=== PATIENT | male | born 1965 | race Caucasian/White ===

== ENCOUNTER 2022-08-10 08:15 | Outpatient (RCR) | payer OTHER, SELFPAY | END 2022-09-24 11:08 | disposition home or self-care (01) | PROVIDERS: PCP Family Medicine; Visit Provider Family Medicine | DX: M25.511 Pain in right shoulder (principal); Z51.89 Encounter for other specified aftercare | CPT/HCPCS: 97110; 97140; 97161 ==

== ENCOUNTER 2022-11-03 07:39 | Outpatient (CLI) | payer OTHER, SELFPAY | END 2022-11-03 07:40 | disposition home or self-care (01) | PROVIDERS: PCP Family Medicine; Visit Provider Surgery | DX: Z12.11 Encounter for screening for malignant neoplasm of colon (principal); K63.5 Polyp of colon; K57.30 Diverticulosis of large intestine without perforation or abscess without bleeding; Z86.010 Personal history of colon polyps | CPT/HCPCS: 45385; 88305; 99153; J2250; J3010 ==

== ENCOUNTER 2024-12-20 07:45 | Outpatient (CLI) | payer OTHER, SELFPAY ==
--- NOTE | 2024-12-20 08:00 | CRLHL7_ITS ---
For Patients: As a result of the Century Cures Act, medical imaging exams and procedure reports are released immediately into your electronic medical record. You may view this report before your referring provider. If you have questions, please contact your health care provider. INDICATION: .LLQ/GROIN PAIN. POSSIBLE HERNIA. TECHNIQUE: CT abdomen and pelvis without contrast. COMPARISON: CT 2019. FINDINGS: Lower chest: Dependent subsegmental atelectasis. ABDOMEN: Liver: Normal attenuation. Gallbladder and biliary: Cholecystectomy. Normal caliber bile ducts. Spleen: Normal size and attenuation. Pancreas: The noncontrast pancreas is homogeneous in attenuation without peripancreatic inflammatory changes or ductal dilatation. Adrenal glands: Normal adrenal glands. Kidneys and ureters: Normal attenuation. No radio-opaque calculi. No hydroureteronephrosis. GI tract: The stomach is relatively decompressed. Normal caliber small and large bowel loops. Normal appendix. Colonic diverticulosis without diverticulitis. Vascular structures: Normal caliber aorta with atherosclerotic calcifications. Lymph nodes: No lymphadenopathy in the abdomen or pelvis by size criteria. Peritoneum: No free air, free fluid, or focal drainable fluid collection. PELVIS: Genitourinary system: Urinary bladder is decompressed. Normal-sized prostate. SKELETAL STRUCTURES AND SOFT TISSUES: Changes of prior umbilical hernia repair. No discrete inguinal hernia. Old left transverse process fractures involving the lumbar spine. Ossific fragment in the left hip joint space. Chronic. IMPRESSION: No discrete acute abdominal or pelvic process. No imaging findings to explain the reported clinical symptoms. No definite inguinal hernia on this exam. Please note that all CT scans at this facility use dose modulation, iterative reconstruction, and/or weight-based dosing when appropriate to reduce radiation dose to as low as reasonably achievable. Dictated by Michele Maciel MD @ 12/20/2024 4:27:22 PM (Electronically Signed)
== END 2024-12-20 07:46 | disposition home or self-care (01) ==
LOC: CT 07:46
PROVIDERS: PCP Family Medicine; Visit Provider Family Medicine
DX: R10.32 Left lower quadrant pain (principal)
CPT/HCPCS: 74176

== ENCOUNTER 2025-03-19 09:15 | Outpatient (RCR) | payer BC, SELFPAY ==
--- NOTE | 2025-02-26 15:18 | PT.OPE ---
PT [facility] Outpatient Eval [facility] Outpatient Eval Start: 02/26/25 12:42 Freq: Status: Active Protocol: Document 02/26/25 12:42 (Rec: 02/26/25 15:15 [email or web address]) E-signed By Cleo Whittaker DPT Physical Therapy Outpatient Evaluation Insurance Information Recert Due Date 05/29/25 Insurance Name [facility] Medical Diagnosis R10.32 Left lower quadrant pain Left Groin pain Treating Diagnosis M25.652 Stiffness of Left Hip M25.552 Left Hip Pain Imaging Report CT scan= no acute abdominal or pelvis process Information Referring MD Isaias Goodman MD Subjective Preferred Name Corbin Alaniz is a 59 y/o male who presents with c/o pain in rear butt and in groin. Originally happened possibly after lifting heavy object. Pain has been present for ~ 6 months and feels pain usually after sitting for long periods of time and isolated to the left side. SHERRELL:?possibly lifting heavy object and felt pull on bottom of buttocks. Aggravating factors:?sitting for long periods of time. Alleviating factors:?Tylenol but pain will decrease over time and when he isn't sitting for long times while working. PMH:?low back problems, OA in hips, possibly prostate concerns with family history of prostate cancer. 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 -Knee Flex: R: 5/5, L: 5/5? -Hip Abd: R: 5/5, L: 4/5? -Hip Add: R: 5/5, L: 5/5? -Hip Ext: R: 4+/5, L: 4-/5? -Hip Flx: R: 5/5, L: 4/5? Palpation Soreness with palpation in left ITB and slight soreness in left piriformis. Pain relief provided with open pack long axis distraction Posture Noted left pelvic ASIS upslip compared to left after muscle length testing. Correct with long axis mobilization. Sensation/Reflexes normal Other/Pertinent Hip Labral:? Objective -RHONDA: positive on Left for tightness and pain; tight on right but > left -FADIR:?positive for tightness - Sandie's: positive - Hamstrin degrees L/ 55 degrees -Hip Abd: R: 5/5, L: 4/5? -Hip Ext: R: 4+/5, L: 4-/5? -Hip Flx: R: 5/5, L: 4/5? Functional Test LEFS= 51/80 Performed & Score Assessment Assessment/ Corbni is a 59 year old male presenting to physical Impression therapy for evaluation and treatment of left lower quadrant pain and left groin pain. Patient presents with impaired left hip range of motion, impaired strength, and impaired pelvic postural alignment as well as pain. These impairments are limiting the patients ability to sit for extended periods of time and complete certain lower extremity motions for functional mobility. Patient appears motivated to participate in PT and presents with good prognosis to improve mobility, strength, proprioception and return to functional activities with skilled physical therapy intervention.? Primary Functional flexibility, pain with sitting and mobility, weakness Limitations Plan of Care Rehabilitation Good Potential Physical Therapy STG's to be met in 2-4 weeks: Goals 1.) Pt will report pain at 6/10 or less at worst 2.) Pt will be independent and compliant with HEP to further facilitate healing. LTG's to be met in 6-8 weeks: 1.) Pt will report pain at 4/10 or less at worst. 2.) Pt will demonstrate 5/5 strength MMT in glut max & glut med to improve dynamic control with SLS activities and gait.? 3.) Pt will demonstrate increased left hamstring ROM to 50 degrees or greater and pain free. 4.) Pt will be able to sit during work without pain. Coordination/ Referral Source Communication With Treatment Plan/ Joint Mobilization,Manual Therapy,Neuromuscular Re-ed, Direct Interventions Therapeutic Activities,Therapeutic Exercises Frequency/Duration 1-2x/week for 6-8 weeks Patient Will Be Completion of LTG(s) Discharged From Therapy Evaluation Billing Untimed Code 30 Treatment Minutes PT Eval No Charge No Complexity Low Certification Information Initial 02/26/25 Certification Date Ending Certification 05/29/25 Date Provider Signature Communication Only-No Signature Required Required
== END 2025-07-17 23:59 | disposition home or self-care (01) ==
PROVIDERS: PCP Family Medicine; Visit Provider Family Medicine
DX: R10.32 Left lower quadrant pain (principal); M25.552 Pain in left hip; Z51.89 Encounter for other specified aftercare
CPT/HCPCS: 97110; 97140; 97161

== ENCOUNTER 2025-03-27 07:56 | Outpatient (CLI) | payer BC, SELFPAY ==
--- NOTE | 2025-03-27 08:15 | CRLHL7_ITS ---
For Patients: As a result of the Century Cures Act, medical imaging exams and procedure reports are released immediately into your electronic medical record. You may view this report before your referring provider. If you have questions, please contact your health care provider. INDICATION: Low back pain. TECHNIQUE: Noncontrast sagittal and axial T1, T2, and sagittal STIR sequences are provided. No comparisons. FINDINGS: The overall stature, alignment and intrinsic marrow signal of the lumbar spine is within normal limits. Conus is normal. L4-5: Mild left intra foraminal/lateral disc bulge results in mild left foraminal narrowing with no central canal or right foraminal narrowing. L5-S1: Minor posterior disc bulge with endplate osteophyte and facet arthropathy results in minimal bilateral foraminal narrowing with no central canal narrowing. Remainder of the lumbar spine is unremarkable, specifically no evidence of suspicious central canal or foraminal narrowing. IMPRESSION: 1. Mild left foraminal narrowing at L4-5. 2. Minimal bilateral L5-S1 foraminal narrowing. Dictated by Jese Stafford MD @ 03/28/2025 8:26:06 AM (Electronically Signed)
--- OUTSIDE RECORDS SUMMARY | 2025-03-27 08:27 | XMS_ITS | Encounter Summary ---
Author Organization [place] Address [address] [facility] [place] [address] Care Team Providers Care Harness Rigger Name Role Phone Saige De La Cruz MD Primary Care Provider [phone] Ramsey Romero MD Primary Care Provider Unavailable Arthur Perez MD Primary Care Provider Isaias Goodman MD Primary Care Provider [phone] Nydia Strauss MD Unavailable [phone] Arthur Perez MD Unavailable [phone] Arthur Perez MD Unavailable [phone] Encounter Details Date Type Department Care Team (Late st Contact Info) Description 10/14/2011 MyC Medical Advice [facility] [id number] [place] [id number] Saige De La Cruz MD [address] [place] [address] Social History Tobacco Use Types Packs/Day Years Used Date Smoking Tobacco: Never Smokeless Tobacco: Never Alcohol Use Standard Drinks/Week Comments Yes 0 (1 standard drink = 0.6 oz pur e alcohol) upto 4 drinks per week Sex and Gender Information Value Date Recorded Sex Assigned at Male 05/30/2024 11:48 AM CDT 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 Gender Identity Male 05/30/2024 11:48 AM CDT Sexual Orientation Not on file documented as of this encounter Plan of Treatment Not on file documented as of this encounter Visit Diagnoses Not on filedocumented in this encounter Additional Health Concerns Infection Onset Date Last Indicated Resolved Time Rule Out COVID-19 05/29/2024 05/29/2024 05/30/2024 5:46 PM CDT documented as of this encounter Care Teams Harness Rigger Relationship Specialty Start Date End Date Saige De La Cruz MD PCP - General 07/15/07 06/10/14 Ramsey Romero MD PCP - General Family Practice 06/11/14 08/31/16 Arthur Perez MD [address] [place] [address] PCP - General Internal Medicine 09/01/16 09/08/17 Isaias Goodman MD [facility] [address], [place] [address] PCP - General Family Practice 09/09/17 [place] [address] [place] [address] PCP - Assigned PCP 09/05/17 10/15/18 Arthur Perez MD [address] [place] [address] PCP - Assigned PCP 10/16/18 11/29/18 Arthur Perez MD [address] [place] [address] Assigned PCP 10/16/18 09/02/19 documented as of this encounter
--- OUTSIDE RECORDS SUMMARY | 2025-03-27 08:27 | XMS_ITS | Encounter Summary ---
Author Organization [place] Address [address] [facility] [place] [address] Care Team Providers Care Base Loader Name Role Phone Ramsey Romero MD Primary Care Provider Unavailable Arthur Perez MD Primary Care Provider Isaias Goodman MD Primary Care Provider [phone] Nydia Strauss MD Unavailable [phone] Arthur Perez MD Unavailable [phone] Arthur Perez MD Unavailable [phone] Encounter Details Date Type Department Care Team (Late st Contact Info) Description 07/03/2015 [facility] [place] [address] [place] [address] [address] [place] [address] Billy Jorge MD [facility] [place] [address] [place] [address] [address] [place] [address] [facility]/ Op Report/ 07/03/15 Social History Tobacco Use Types Packs/Day Years Used Date Smoking Tobacco: Never Smokeless Tobacco: Never Alcohol Use Standard Drinks/Week Comments Yes 0 (1 standard drink = 0.6 oz pur e alcohol) upto 4 drinks per week Sex and Gender Information Value Date Recorded Sex Assigned at Male 05/30/2024 11:48 AM CDT 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 Gender Identity Male 05/30/2024 11:48 AM CDT Sexual Orientation Not on file documented as of this encounter Plan of Treatment Not on file documented as of this encounter Visit Diagnoses Not on filedocumented in this encounter Additional Health Concerns Infection Onset Date Last Indicated Resolved Time Rule Out COVID-19 05/29/2024 05/29/2024 05/30/2024 5:46 PM CDT documented as of this encounter Care Teams Base Loader Relationship Specialty Start Date End Date Ramsey Romero MD PCP - General Family Practice 06/11/14 08/31/16 Arthur Perez MD [address] [place] [address] PCP - General Internal Medicine 09/01/16 09/08/[address] [facility] [address], [place] [address] PCP - General Family Practice 09/09/17 [place] [address] [place] [address] PCP - Assigned PCP 09/05/17 10/15/18 Arthur Perez MD [address] [place] [address] PCP - Assigned PCP 10/16/18 11/29/18 Arthur Perez MD [address] [place] [address] Assigned PCP 10/16/18 09/02/19 documented as of this encounter
--- OUTSIDE RECORDS SUMMARY | 2025-03-27 08:27 | XMS_ITS | Encounter Summary ---
Author Organization [place] Address [address] [facility] [place] [address] Care Team Providers Care Physician Internist Name Role Phone Saige De La Cruz MD Primary Care Provider [phone] Ramsey Romero MD Primary Care Provider Unavailable Arthur Perez MD Primary Care Provider [phone] Isaias Goodman MD Primary Care Provider [phone] Nydia Strauss MD Unavailable [phone] Arthur Perez MD Unavailable [phone] Arthur Perez MD Unavailable [phone] Encounter Details Date Type Department Care Team (Late st Contact Info) Description 08/04/2010 MyC Medical Advice [facility] [id number] [place] [id number] Saige De La Cruz MD [address] [place] [address] Social History Tobacco Use Types Packs/Day Years Used Date Smoking Tobacco: Never Alcohol Use Standard Drinks/Week Comments Yes 0 (1 standard drink = 0.6 oz pur e alcohol) 3 drinks per wk Sex and Gender Information Value Date Recorded Sex Assigned at Male 05/30/2024 11:48 AM CDT 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 Gender Identity Male 05/30/2024 11:48 AM CDT Sexual Orientation Not on file documented as of this encounter Plan of Treatment Not on file documented as of this encounter Visit Diagnoses Not on filedocumented in this encounter Additional Health Concerns Infection Onset Date Last Indicated Resolved Time Rule Out COVID-19 05/29/2024 05/29/2024 05/30/2024 5:46 PM CDT documented as of this encounter Care Teams Physician Internist Relationship Specialty Start Date End Date Saige De La Cruz MD PCP - General 07/15/07 06/10/14 Ramsey Romero MD PCP - General Family Practice 06/11/14 08/31/16 Arthur Perez MD [address] [place] [address] PCP - General Internal Medicine 09/01/16 09/08/17 Isaias Goodman MD [facility] [address], [place] [address] PCP - General Family Practice 09/09/17 [place] [address] [place] [address] PCP - Assigned PCP 09/05/17 10/15/18 Arthur Perez MD [address] [place] [address] PCP - Assigned PCP 10/16/18 11/29/18 Arthur Perez MD [address] [place] [address] Assigned PCP 10/16/18 09/02/19 documented as of this encounter
--- OUTSIDE RECORDS SUMMARY | 2025-03-27 08:27 | XMS_ITS | Encounter Summary ---
Author Organization [place] Address [address] [place] [address] Care Team Providers Care Director Of Clinical Education Name Role Phone Saige De La Cruz MD Primary Care Provider [phone] Ramsey Romero MD Primary Care Provider Unavailable Arthur Perez MD Primary Care Provider [phone] Isaias Goodman MD Primary Care Provider [phone] Nydia Strauss MD Unavailable [phone] Arthur Perez MD Unavailable [phone] Arthur Perez MD Unavailable [phone] Encounter Details Date Type Department Care Team (Late st Contact Info) Description 08/05/2011 MyC Medical Advice [facility] [id number] [place] [phone] Saige De La Cruz MD [address] [place] [address] Social History Tobacco Use Types Packs/Day Years Used Date Smoking Tobacco: Never Smokeless Tobacco: Never Alcohol Use Standard Drinks/Week Comments Yes 0 (1 standard drink = 0.6 oz pur e alcohol) upto 4 drinks per week Sex and Gender Information Value Date Recorded Sex Assigned at Male 05/30/2024 11:48 AM CDT 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 Gender Identity Male 05/30/2024 11:48 AM CDT Sexual Orientation Not on file documented as of this encounter Plan of Treatment Not on file documented as of this encounter Visit Diagnoses Not on filedocumented in this encounter Additional Health Concerns Infection Onset Date Last Indicated Resolved Time Rule Out COVID-19 05/29/2024 05/29/2024 05/30/2024 5:46 PM CDT documented as of this encounter Care Teams Director Of Clinical Education Relationship Specialty Start Date End Date Saige De La Cruz MD PCP - General 07/15/07 06/10/14 Ramsey Romero MD PCP - General Family Practice 06/11/14 08/31/16 Arthur Perez MD [address] [place] [address] PCP - General Internal Medicine 09/01/16 09/08/17 sIaias Goodman MD [facility] [address], [place] [address] PCP - General Family Practice 09/09/17 [place] [address] [place] [address] PCP - Assigned PCP 09/05/17 10/15/18 Arthur Perez MD [address] [place] [address] PCP - Assigned PCP 10/16/18 11/29/18 Arthur Perez MD [address] [place] [address] Assigned PCP 10/16/18 09/02/19 documented as of this encounter
--- OUTSIDE RECORDS SUMMARY | 2025-03-27 08:27 | XMS_ITS | Encounter Summary ---
Author Organization [place] Address [address] [facility] [place] [address] Care Team Providers Care Labeling Strategist Name Role Phone Saige De La Cruz MD Primary Care Provider [phone] Ramsey Romero MD Primary Care Provider Unavailable Arthur Perez MD Primary Care Provider Isaias Goodman MD Primary Care Provider [phone] Nydia Strauss MD Unavailable [phone] Arthur Perez MD Unavailable [phone] Arthur Perez MD Unavailable [phone] Encounter Details Date Type Department Care Team (Late st Contact Info) Description 10/16/2011 MyC Medical Advice [facility] [id number] [place] [phone] Saige De La Cruz MD [address] [place] [address] Social History Tobacco Use Types Packs/Day Years Used Date Smoking Tobacco: Never Smokeless Tobacco: Never Alcohol Use Standard Drinks/Week Comments Yes 0 (1 standard drink = 0.6 oz pur e alcohol) upto 4 drinks per week Sex and Gender Information Value Date Recorded Sex Assigned at Male 05/30/2024 11:48 AM CDT 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 Gender Identity Male 05/30/2024 11:48 AM CDT Sexual Orientation Not on file documented as of this encounter Plan of Treatment Not on file documented as of this encounter Visit Diagnoses Not on filedocumented in this encounter Additional Health Concerns Infection Onset Date Last Indicated Resolved Time Rule Out COVID-19 05/29/2024 05/29/2024 05/30/2024 5:46 PM CDT documented as of this encounter Care Teams Labeling Strategist Relationship Specialty Start Date End Date Saige De La Cruz MD PCP - General 07/15/07 06/10/14 Ramsey Romero MD PCP - General Family Practice 06/11/14 08/31/16 Arthur Perez MD [address] [place] [address] PCP - General Internal Medicine 09/01/16 09/08/17 Isaias Goodman MD [facility] [address], [place] [address] PCP - General Family Practice 09/09/17 [place] [address] [place] [address] PCP - Assigned PCP 09/05/17 10/15/18 Arthur Perez MD [address] [place] [address] PCP - Assigned PCP 10/16/18 11/29/18 Arthur Perez MD [address] [place] [address] Assigned PCP 10/16/18 09/02/19 documented as of this encounter
--- OUTSIDE RECORDS SUMMARY | 2025-03-27 08:27 | XMS_ITS | Encounter Summary ---
Author Organization [place] Address [address] [facility] [place] [address] Care Team Providers Care Cracker Dough Mixer Name Role Phone Ramsey Romero MD Primary Care Provider Unavailable Arthur Perez MD Primary Care Provider [phone] Isaias Goodman MD Primary Care Provider [phone] Nydia Strauss MD Unavailable [phone] Arthur Perez MD Unavailable [phone] Arthur Perez MD Unavailable [phone] Encounter Details Date Type Department Care Team (Late st Contact Info) Description 12/21/2014 [facility] [address] [address] Keturah Potrillo RN Social History Tobacco Use Types Packs/Day Years Used Date Smoking Tobacco: Never Smokeless Tobacco: Never Alcohol Use Standard Drinks/Week Comments Yes 0 (1 standard drink = 0.6 oz pur e alcohol) upto 4 drinks per week Sex and Gender Information Value Date Recorded Sex Assigned at Male 05/30/2024 11:48 AM CDT 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 Gender Identity Male 05/30/2024 11:48 AM CDT Sexual Orientation Not on file documented as of this encounter Plan of Treatment Not on file documented as of this encounter Visit Diagnoses Not on filedocumented in this encounter Additional Health Concerns Infection Onset Date Last Indicated Resolved Time Rule Out COVID-19 05/29/2024 05/29/2024 05/30/2024 5:46 PM CDT documented as of this encounter Care Teams Cracker Dough Mixer Relationship Specialty Start Date End Date Ramsey Romero MD PCP - General Family Practice 06/11/14 08/31/16 Arthur Perez MD [address] [place] [address] PCP - General Internal Medicine 09/01/16 09/08/17 Isaias Goodman MD [facility] [address] [place] [address] PCP - General Family Practice 09/09/17 [place] [address] [place] [address] PCP - Assigned PCP 09/05/17 10/15/18 Arthur Perez MD [address] [place] [address] PCP - Assigned PCP 10/16/18 11/29/18 Arthur Perez MD [address] [place] [address] Assigned PCP 10/16/18 09/02/19 documented as of this encounter
--- OUTSIDE RECORDS SUMMARY | 2025-03-27 08:27 | XMS_ITS | Clinical Summary ---
Author Organization [place] Address [address] [facility] [place] [address] Care Team Providers Care Analysis Lead Name Role Phone Isaias Goodman MD Primary Care Provider [phone] Allergies Active Allergy Reactions Criticality Noted Date Comments No Known Drug Allergy 03/24/2007 Medications IBUPROFEN PO Active albuterol (PROAIR HFA/PROVENTIL HFA/VENTOLIN HFA) 108 (90 BASE) MCG/ACT InhalerIndications :Bronchitis Inhale 2 puffs into the lungs every 6 hours as needed for shortness of breath / dyspnea or wheezing 1 Inhaler 3 09/01/20 16 Active atorvastatin (LIPITOR) 10 MG tabletIndications: Hyperlipidemia LDL goal <160 Take 1 tablet (10 mg) by mouth daily 90 tablet 3 09/01/20 16 Active Additional Information Patient not taking.Reported on 11/11/2019 cetirizine (ZYRTEC) 10 MG tabletIndications: Allergic rhinitis due to animal hair and dander, unspecified rhinitis seasonality Take 1 tablet (10 mg) by mouth every evening 90 tablet 3 09/01/20 16 Active levothyroxine (SYNTHROID/LEVOTHR OID) 75 MCG tabletIndications: Acquired hypothyroidism TAKE 1 TABLET BY MOUTH DAILY 90 tablet 09/06/20 17 Active fluticasone (FLONASE) 50 MCG/ACT sprayIndications:C ough [place] 2 sprays into both nostrils daily 3 Bottle 09/07/20 17 Active atorvastatin (LIPITOR) 20 MG tablet Take 20 mg by mouth daily Active meclizine (ANTIVERT) 25 MG tabletIndications: Benign paroxysmal positional vertigo, unspecified laterality Take 1 tablet (25 mg) by mouth 3 times daily as needed for dizziness or nausea. 30 tablet 05/29/20 24 Active Active Problems Patient Care Coordination No te Formatting of this note migh t be different from the original. [email or web address] Problem Noted Date Diagnosed Date Acquired hypothyroidism 12/11/2015 Gastroesophageal reflux disease without esophagi tis 06/28/2015 VICTORIA (obstructive sleep apnea) 08/24/2012 Family history of coronary artery disease 2010 Hyperlipidemia LDL goal <160 08/18/2010 Hyperlipidemia Overview (06/27/2015): Problem list name updated by automated process. Provider to review Resolved Problems Problem Noted Date Diagnosed Date Resolved Date Bilateral low back pain with right-sided sciatica 12/18/2015 03/02/2016 Pain in joint, shoulder region 08/29/2014 12/31/2014 Other postprocedural status(V45.89) 08/29/2014 12/31/2014 Pain in joint, shoulder region 12/26/2013 01/30/2014 Other postprocedural status(V45.89) 12/26/2013 01/30/2014 Umbilical hernia 08/24/2012 06/28/2015 Hypothyroidism 08/12/2011 12/11/2015 Overview (06/28/2015): Problem list name updated by automated process. Provider to review Impaired fasting blood sugar 07/30/2011 06/28/2015 Subclinical hypothyroidism 07/30/2011 1 Snoring 07/30/2011 06/28/2015 Chest pain 06/28/2015 Immunizations Immunization Administration Dates Next Due COVID-19 MONOVALENT 12+ (Pfizer) 01/07/2021,11/26 Influenza (IIV3) PF 09/01/2016, 2,07/30/2011,2009,07/15/2007 Influenza Vaccine >6 months,quad, PF 06/25/2015 Influenza Vaccine, 6+MO IM (QUADRIVALENT W/PRESERVATIVES) 08/30/2014 TD,PF 7+ (Tenivac) 09/27/1999 TDAP Vaccine (Adacel) 05/05/2007 Family History Medical History Relation Comments Hyperlipidemia Brother 2 Lipids Brother 2 doing well with diet and exercise Coronary Artery Disease Father Heart Disease Father mid to upper 50' s-smoker , s/p stenting at that age Hyperlipidemia Father Hypertension Father alive 72 Lipids Father Family History Negative Maternal Grandfather Family History Negative Maternal Grandmother Family History Negative Mother alive 71 Diabetes Paternal Grandfather Obesity Paternal Grandfather Alzheimer Disease Paternal Grandmother Family History Negative Sister 4 Gastrointestinal Disease Sister 5 chron's dis Family History Negative Sister 6 Cancer - colorectal No family hx of Prostate Cancer No family hx of Relation Status Comments Brother 1 Alive Brother 2 Daughter Alive Father Alive Maternal Grandfather Maternal Grandmother Mother Alive Paternal Grandfather Paternal Grandmother Sister 1 Alive Sister 2 Alive Sister 3 Alive Sister 4 Sister 5 Sister 6 Son Alive Social History Tobacco Use Types Packs/Day Years Used Date Smoking Tobacco: Never Smokeless Tobacco: Never Tobacco Cessation:Counseling Given: Yes Alcohol Use Standard Drinks/Week Comments Yes 0 (1 standard drink = 0.6 oz pur e alcohol) upto 4 drinks per week PHQ-2 Answer Date Recorded PHQ-2 Score 0 10/04/2018 Adolescent Education Answer Date Record ed Getting School Help Needed Not on file 07/04 Interpersonal Safety Answer Date Record ed Do you feel physically and e motionally safe where you currently live? Yes 05/31/2024 Within the past 12 months, h ave you been hit, slapped, kicked or otherwise physically hurt by someone? No 05/31/2024 Within the past 12 months, h ave you been humiliated or emotionally abused in other ways by your partner or ex-partner? 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 RN INTERN Gender Identity Male 05/30/2024 11:48 AM CDT Sexual Orientation Not on file Last Filed Vital Signs Vital Sign Reading Time Taken Comments Blood Pressure 139/85 05/29/2024 3:58 PM CDT Pulse 75 05/29/2024 3:58 PM CDT Temperature 36.6 C (97.8 F) 05/29/2024 3:58 PM CDT Respiratory Rate 16 05/29/2024 3:58 PM CDT Oxygen Saturation 95% 05/29/2024 3:58 PM CDT Inhaled Oxygen Concentration - - Weight 116.4 kg (256 lb 9.6 oz) 05/29/2024 3:58 PM CDT Height 185.4 cm (6' 1) 02/23/2020 3:25 PM CDT Body Mass Index 33.85 02/23/2020 3:25 PM CDT Plan of Treatment Health Maintenance Due Date Last Done Comments ADVANCE CARE PLANNING 1967 ANNUAL REVIEW OF HM ORDERS 1967 CT COLONOGRAPHY 1967 FIT 1967 FLEX SIG 1967 sDNA (Cologuard) 1967 COLONOSCOPY 1977 COLORECTAL CANCER SCREENING 1977 HEPATITIS B VACCINE (1 of 3 - 19+ 3-dose series) 1986 YEARLY PREVENTIVE VISIT 09/01/2017 09/01/20 16, 06/07/2014, 08/24/2012, Additional history exists PNEUMOCOCCAL VACCINE 50+ YEARS (1 of 1 - PCV) 2017 TSH W/FREE T4 REFLEX 01/20/2018 01/20/2017, 09/01/2016, 09/01/2016, Additional history exists LIPID 01/20/2022 01/20/2017, 1202/2016, 12/11/2015, Additional history exists COVID-19 VACCINE ( season) 2024 07/29/2022, 09/17/2021, 01/07/2021, Additional history exists PHQ-2 (once per calendar year) 2024 09/01/2016 INFLUENZA VACCINE (Season Ended) 2025 07/29/2022, 11/15/2020, 09/06/2017, Additional history exists DIABETES SCREENING 05/29/2027 05/29/2024, 0 02/23/2020, 09/01/2016, Additional history exists DTAP/TDAP/TD VACCINE (3 - Td or Tdap) 09/06/2027 09/06/2017, 05/05/2007, 09/27/1999 HEPATITIS C SCREENING Completed 11/13/2020 ZOSTER VACCINE Completed 11/15/2020, 04/11/2020 HIV SCREENING Completed 12/03/2021 HPV VACCINE Aged Out No longer eligi ble based on patient's age to complete this topic MENINGITIS VACCINE Aged Out No longer eligible based on patient's age to complete this topic Medical Devices Implanted Type Area Paid Search Marketing Analyst Device Identifier Shelf Expiration Date Model / Serial / Lot Mesh Ventralex Hernia 2.5 [place] Med W/Strap [id number] Implanted:Qty : 1 on 09/13/2013 by Perry Asif MD at [facility] N/A: Umbilical [employer] 07/27/2015 [id number] / / [id number] Procedures Procedure Name Priority Date/Time Associated Diagnosis Comments COMPREHENSIVE METABOLIC PANEL Routine 05/29/2024 4:49 PM CDT Dizziness TSH WITH FREE T4 REFLEX Routine 01/20/2017 9:00 AM CDT Acquired hypothyroidism LIPID REFLEX TO DIRECT LDL PANEL Routine 01/20/2017 9:00 AM CDT Hyperlipidemia LDL goal <160 from Last 3 Months or Most Recently Relevant to Health Maintenance Results * (ABNORMAL) Comprehensive metabolic panel (BMP + Alb, Alk Phos, ALT, AST, Total. Bili, TP) (05/29/2024 4:49 PM CDT) Sodium 139 135 - 145 mmol/L 05/30/2024 5:01 PM CDT [facility] Potassium 4.5 3.4 - 5.3 mmol/L 05/30/2024 5:01 PM CDT [facility] Carbon Dioxide (CO2) 24 22 - 29 mmol/L 05/30/2024 5:01 PM CDT [facility] Anion Gap 12 7 - 15 mmol/L 05/30/2024 5:01 PM CDT [facility] Urea Nitrogen 17.5 6.0 - 20.0 mg/dL 05/30/2024 5:01 PM CDT [facility] Creatinine 0.79 0.67 - 1.17 mg/dL 05/30/2024 5:01 PM CDT [facility] GFR Estimate >90 >60 mL/min/1.7 3m2 05/30/2024 5:01 PM CDT [facility] Comment:eGFR calculated us2020 CKD-EPI equation. Calcium 9.6 8.8 - 10.4 mg/dL 05/30/2024 5:01 PM CDT [facility] Comment:Reference intervals for this test were updated on 04/11/2024 to reflect our healthy population more accurately. There may be differences in the flagging of prior results with similar values performed with this method. Those prior results can be interpreted in the context of the updated reference intervals. Chloride 103 98 - 107 mmol/L 05/30/2024 5:01 PM CDT [facility] Glucose 113(H) 70 - 99 mg/dL 05/30/2024 5:01 PM CDT [facility] Alkaline Phosphatase 67 40 - 150 U/L 05/30/2024 5:01 PM CDT [facility] AST 32 0 - 45 U/L 05/30/2024 5:01 PM CDT [facility] ALT 35 0 - 70 U/L 05/30/2024 5:01 PM CDT [facility] Protein Total 7.1 6.4 - 8.3 g/dL 05/30/2024 5:01 PM CDT [facility] Albumin 4.3 3.5 - 5.2 g/dL 05/30/2024 5:01 PM CDT [facility] Bilirubin Total 0.5 <=1.2 mg/dL 05/30/2024 5:01 PM CDT [facility] Blood BLOOD SPECIMEN / Unknown Venipuncture / Unknown 05/29/2024 4:49 PM CDT 05/29/2024 4:49 PM CDT us Farzana Collins PA-C LAB - BLOOD ORDERABLES Final Result [facility] [place] [facility] [address] [facility] [address] [facility], [address] [place] [address] * TSH with free T4 reflex FUTURE 1yr (01/20/2017 9:00 AM CDT) TSH 3.48 0.40 - 4.00 mU/L [facility] Blood specimen (specimen) 01/20/2017 9:00 AM CDT 01/20/2017 9:05 AM CDT us Arthur Perez MD LAB - BLOOD ORDERABLES Deisy l Result Performing Organization Address City/[facility] Co de Phone Number [facility] [address] [place] [phone] * Lipid panel reflex to direct LDL FUTURE 1yr (01/20/2017 9:00 AM CDT) Cholesterol 165 <200 mg/dL [facility] Triglycerides 124 <150 mg/dL [facility] Comment:Fasting specimen HDL Cholesterol 41 >39 mg/dL [facility] LDL Cholesterol Calculated 99 <100 mg/dL [facility] Comment:Desirable: <100 mg/d l Non HDL Cholesterol 124 <130 mg/dL [facility] Blood specimen (specimen) 01/20/2017 9:00 AM CDT 01/20/2017 9:05 AM CDT Arthur Perez MD LAB - BLOOD ORDERABLES Deisy l Result Performing Organization Address [facility] Co de Phone Number [facility] [address] [place] [phone] from Last 3 Months or Most Recently Relevant to Health Maintenance Insurance [employer] [place] [address] Care Teams Analysis Lead Relationship Specialty Start Date End Date Isaias Goodman MD [facility] [address] [place] [address] PCP - General Family Practice 09/09/17
--- OUTSIDE RECORDS SUMMARY | 2025-03-27 08:27 | XMS_ITS | Encounter Summary ---
Author Organization [facility] Address [address] [facility] [place] [address] Care Team Providers Care Car Hop Name Role Phone Saige De La Cruz MD Primary Care Provider [phone] Ramsey Romero MD Primary Care Provider Unavailable Arthur Perez MD Primary Care Provider [phone] Isaias Goodman MD Primary Care Provider [phone] Nydia Strauss MD Unavailable [phone] Arthur Perez MD Unavailable [phone] Arthur ePrez MD Unavailable [phone] Encounter Details Date Type Department Care Team (Late st Contact Info) Description 10/04/2012 [facility] Medical Advice [facility] [address] [place] [address] Saige De La Cruz MD [address] [place] [address] Social History Tobacco Use Types Packs/Day Years Used Date Smoking Tobacco: Never Smokeless Tobacco: Never Alcohol Use Standard Drinks/Week Comments Yes 0 (1 standard drink = 0.6 oz pur e alcohol) upto 4 drinks per week Sex and Gender Information Value Date Recorded Sex Assigned at Male 05/30/2024 11:48 AM CDT Legal Sex Male 4: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 Gender Identity Male 05/30/2024 11:48 AM CDT Sexual Orientation Not on file documented as of this encounter Plan of Treatment Not on file documented as of this encounter Visit Diagnoses Not on filedocumented in this encounter Additional Health Concerns Infection Onset Date Last Indicated Resolved Time Rule Out COVID-19 05/29/2024 05/29/2024 05/30/2024 5:46 PM CDT documented as of this encounter Care Teams Car Hop Relationship Specialty Start Date End Date Saige De La Cruz MD PCP - General 07/15/07 06/10/14 Ramsey Romero MD PCP - General Family Practice 06/11/14 08/31/16 Arthur Perez MD [address] [place] [address] PCP - General Internal Medicine 09/01/16 09/08/17 Isaias Goodman MD [facility] [place] [facility] [address], [place] [address] PCP - General Family Practice 09/09/17 [place] [address] [place] [address] PCP - Assigned PCP 09/05/17 10/15/18 Arthur Perez MD [address] [place] [address] PCP - Assigned PCP 10/16/18 11/29/18 Arthur Perez MD [address] [place] [address] Assigned PCP 10/16/18 09/02/19 documented as of this encounter
--- OUTSIDE RECORDS SUMMARY | 2025-03-27 08:27 | XMS_ITS | Encounter Summary ---
Author Organization [place] Address [address] [place] [address] Care Team Providers Care Oil Heat Technician Name Role Phone Ramsey Romero MD Primary Care Provider Unavailable Arthur Perez MD Primary Care Provider [phone] Isaias Goodman MD Primary Care Provider [phone] Nydia Strauss MD Unavailable [phone] Arthur Perez MD Unavailable [phone] Arthur Perez MD Unavailable [phone] Encounter Details Date Type Department Care Team (Late st Contact Info) Description 01/14/2016 External Order Results [address] [address] Outside, Provider Social History Tobacco Use Types Packs/Day Years Used Date Smoking Tobacco: Never Smokeless Tobacco: Never Alcohol Use Standard Drinks/Week Comments Yes 0 (1 standard drink = 0.6 oz pur e alcohol) upto 4 drinks per week Sex and Gender Information Value Date Recorded Sex Assigned at Male 05/30/2024 11:48 AM CDT 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 Gender Identity Male 05/30/2024 11:48 AM CDT Sexual Orientation Not on file documented as of this encounter Plan of Treatment Not on file documented as of this encounter Procedures Procedure Name Priority Date/Time Associated Diagnosis Comments MRI IMAGING - HIM SCAN Routine 01/01/2016 documented in this encounter Results * MRI Imaging - HIM Scan (01/01/2016) Anatomical Region Laterality Modality Other us Provider Outside IMG MRI ORDERABLES Final Result documented in this encounter Visit Diagnoses Not on filedocumented in this encounter Additional Health Concerns Infection Onset Date Last Indicated Resolved Time Rule Out COVID-19 05/29/2024 05/29/2024 05/30/2024 5:46 PM CDT documented as of this encounter Care Teams Oil Heat Technician Relationship Specialty Start Date End Date Ramsey Romero MD PCP - General Family Practice 06/11/14 08/31/16 Arthur Perez MD [address] [place] [address] PCP - General Internal Medicine 09/01/16 09/08/17 Isaias Goodman MD [facility] [address] [place] [address] PCP - General Family Practice 09/09/17 [place] [address] [place] [address] PCP - Assigned PCP 09/05/17 10/15/18 Arthur Perez MD [address] [place] [address] PCP - Assigned PCP 10/16/18 11/29/18 Arthur Perez MD [address] [place] [address] Assigned PCP 10/16/18 09/02/19 documented as of this encounter
--- OUTSIDE RECORDS SUMMARY | 2025-03-27 08:27 | XMS_ITS | Encounter Summary ---
Author Organization [place] Address [address] [place] [address] Care Team Providers Care Excavator Backhoe Operator Name Role Phone Arthur Perez MD Primary Care Provider [phone] Isaias Goodman MD Primary Care Provider [phone] Nydia Strauss MD Unavailable [phone] Arthur Perez MD Unavailable [phone] Arthur Perez MD Unavailable [phone] Encounter Details Date Type Department Care Team (Late st Contact Info) Description 09/06/2017 [facility] Medical Advice [address] [place] [address] Mariel Dailey RN Social History Tobacco Use Types Packs/Day Years Used Date Smoking Tobacco: Never Smokeless Tobacco: Never Alcohol Use Standard Drinks/Week Comments Yes 0 (1 standard drink = 0.6 oz pur e alcohol) upto 4 drinks per week Sex and Gender Information Value Date Recorded Sex Assigned at Male 05/30/2024 11:48 AM CDT 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 Gender Identity Male 05/30/2024 11:48 AM CDT Sexual Orientation Not on file documented as of this encounter Plan of Treatment Not on file documented as of this encounter Visit Diagnoses Not on filedocumented in this encounter Additional Health Concerns Infection Onset Date Last Indicated Resolved Time Rule Out COVID-19 05/29/2024 05/29/2024 05/30/2024 5:46 PM CDT documented as of this encounter Care Teams Excavator Backhoe Operator Relationship Specialty Start Date End Date Arthur Perez MD [address] [place] [address] PCP - General Internal Medicine 09/01/16 09/08/17 Isaias Goodman MD [facility] [address] [place] [address] PCP - General Family Practice 09/09/17 [place] [address] [place] [address] PCP - Assigned PCP 09/05/17 10/15/18 Arthur Perez MD [address] [place] [address] PCP - Assigned PCP 10/16/18 11/29/18 Arthur Perez MD [address] [place] [address] Assigned PCP 10/16/18 09/02/19 documented as of this encounter
--- OUTSIDE RECORDS SUMMARY | 2025-03-28 00:35 | XMS_ITS | Clinical Summary ---
Author Organization [employer] [facility] Address [address] [place] [address] Care Team Providers Care Addictions Recovery Specialist Name Role Phone Isaias Goodman MD Primary Care Provider [phone] Isaias Goodman MD Unavailable [phone] Allergies No known active allergies Medications atorvastatin (LIPITOR) 20 mg tablet Take 20 mg by mouth. Active fluticasone (50 mcg per actuation) nasal solution (FLONASE) Inhale 2 Sprays into both nostrils once daily. Active cetirizine (ZYRTEC) 10 mg tablet Take 10 mg by mouth once daily. Active Levothyroxine 125 mcg cap Take 125 mcg by mouth once daily. Active predniSONE (DELTASONE) 50 mg tab tablet Take 50 mg by mouth once daily. Active benzonatate (TESSALON PERLE ORAL) Take by mouth. Activ e albuterol HFA (PRO-AIR; VENTOLIN; PROVENTIL) 90 mcg/actuation inhalerIndicatio ns:Acute sinusitis, recurrence not specified, unspecified location Inhale 1-2 Puffs by mouth every 4 hours if needed for Shortness Of Breath or Wheezing. Use with a spacer for better efficacy. 1 Each 2 2 Active benzonatate (TESSALON) 100 mg capsuleIndicatio ns:Acute sinusitis, recurrence not specified, unspecified location Take 1-2 Capsules (100-200 mg) by mouth 3 times daily if needed for Cough. 45 Capsule 1 2 Active Active Problems No known active problems Social History Tobacco Use Types Packs/Day Years Used Date Smoking Tobacco: Never Smokeless Tobacco: Never Alcohol Use Standard Drinks/Week Comments Yes 0 (1 standard drink = 0.6 oz pur e alcohol) Sex and Gender Information Value Date Recorded Sex Assigned at Not on file Legal Sex Male 3:36 PM CDT Gender Identity Not on file Sexual Orientation Not on file Obstetrics History Last Filed Vital Signs Vital Sign Reading Time Taken Comments Blood Pressure 142/91 08/31/2022 11:07 AM HUMAN FACTORS SCIENTIST Pulse 68 08/31/2022 11:07 AM HUMAN FACTORS SCIENTIST Temperature 36.7 C (98 F) 08/31/2022 11:07 AM HUMAN FACTORS SCIENTIST Respiratory Rate 16 08/31/2022 11:07 AM HUMAN FACTORS SCIENTIST Oxygen Saturation 96% 08/31/2022 11:07 AM HUMAN FACTORS SCIENTIST Inhaled Oxygen Concentration - - Weight 117 kg (258 lb) 08/31/2022 11:07 AM HUMAN FACTORS SCIENTIST Height 185.4 cm (6' 1) 09/11/2020 12:31 PM HUMAN FACTORS SCIENTIST Body Mass Index 34.04 09/11/2020 12:31 PM HUMAN FACTORS SCIENTIST Plan of Treatment Health Maintenance Due Date Last Done Comments Tetanus booster 1978 Depression screening for age 12+ 1979 HIV for age 15-65 1982 BMI (ht and wt on same day) for age 18+ 1985 Hepatitis C screening for ag e 18-79 1985 Hepatitis B series for 19+ ( 1 of 3 - 19+ 3-dose series) 1986 Colonoscopy through age 75 2012 Lipids for age 45-75 2012 Pneumococcal series for age 50+ (1 of 1 - PCV) 2017 Zoster (shingles) series for age 50+ (1 of 2) 2017 COVID-19 vaccine series ( season) 2024 07/29/2022, 09/17/2021, 01/07/2021, Additional history exists Influenza Vaccine (#1) 2025 Advance Directives * Full Code (Latest Code Status on File) Date Activated Date Inactivated Comments 09/12/2020 7:24 AM 09/12/2020 11:26 AM Question Answer Comments Code Status Discussion: Not Discussed Care Teams Addictions Recovery Specialist Relationship Specialty Start Date End Date [place]aias Goodman [place] [address] [place] [address] PCP - General Family Practice 09/02/20 Isaias Goodman MD [address] [place] [address] Family Practice 09/02/20
--- OUTSIDE RECORDS SUMMARY | 2025-03-28 00:36 | XMS_ITS | Encounter Summary ---
Author Organization [place] Address [address] [place] [address] Care Team Providers Care Career Information Specialist Name Role Phone Ramsey Romero MD Primary Care Provider Unavailable Arthur Perez MD Primary Care Provider [phone] Isaias Goodman MD Primary Care Provider [phone] Nydia Strauss MD Unavailable [phone] Arthur Perez MD Unavailable [phone] Arthur Perez MD Unavailable [phone] Encounter Details Date Type Department Care Team (Late st Contact Info) Description 12/21/2014 [facility] Medical Advice [address] [address] Keturah Portillo RN Social History Tobacco Use Types Packs/Day Years Used Date Smoking Tobacco: Never Smokeless Tobacco: Never Alcohol Use Standard Drinks/Week Comments Yes 0 (1 standard drink = 0.6 oz pur e alcohol) upto 4 drinks per week Sex and Gender Information Value Date Recorded Sex Assigned at Male 05/30/2024 11:48 AM CDT 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 Gender Identity Male 05/30/2024 11:48 AM CDT Sexual Orientation Not on file documented as of this encounter Plan of Treatment Not on file documented as of this encounter Visit Diagnoses Not on filedocumented in this encounter Additional Health Concerns Infection Onset Date Last Indicated Resolved Time Rule Out COVID-19 05/29/2024 05/29/2024 05/30/2024 5:46 PM CDT documented as of this encounter Care Teams Career Information Specialist Relationship Specialty Start Date End Date Ramsey Romero MD PCP - General Family Practice 06/11/14 08/31/16 Arthur Perez MD [address] [place] [address] PCP - General Internal Medicine 09/01/16 09/08/17 Isaias Goodman MD [facility] [address] [place] [address] PCP - General Family Practice 09/09/17 [place] [address] [place] [address] PCP - Assigned PCP 09/05/17 10/15/18 Arthur Perez MD [address] [place] [address] PCP - Assigned PCP 10/16/18 11/29/18 Arthur Perez MD [address] [place] [address] Assigned PCP 10/16/18 09/02/19 documented as of this encounter
--- OUTSIDE RECORDS SUMMARY | 2025-03-28 00:36 | XMS_ITS | Encounter Summary ---
Author Organization [place] Address [address] [facility] [place] [address] Care Team Providers Care Detail Maker And Fitter Name Role Phone Saige De La Cruz MD Primary Care Provider [phone] Ramsey Romero MD Primary Care Provider Unavailable Arthur Perez MD Primary Care Provider Isaias Goodman MD Primary Care Provider [phone] Nydia Strauss MD Unavailable [phone] Arthur Perez MD Unavailable [phone] Arthur Perez MD Unavailable [phone] Encounter Details Date Type Department Care Team (Late st Contact Info) Description 08/05/2011 MyC Medical Advice [facility] [id number] [place] [phone] Saige De La Cruz MD [address] [place] [address] Social History Tobacco Use Types Packs/Day Years Used Date Smoking Tobacco: Never Smokeless Tobacco: Never Alcohol Use Standard Drinks/Week Comments Yes 0 (1 standard drink = 0.6 oz pur e alcohol) upto 4 drinks per week Sex and Gender Information Value Date Recorded Sex Assigned at Male 05/30/2024 11:48 AM CDT 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 Gender Identity Male 05/30/2024 11:48 AM CDT Sexual Orientation Not on file documented as of this encounter Plan of Treatment Not on file documented as of this encounter Visit Diagnoses Not on filedocumented in this encounter Additional Health Concerns Infection Onset Date Last Indicated Resolved Time Rule Out COVID-19 05/29/2024 05/29/2024 05/30/2024 5:46 PM CDT documented as of this encounter Care Teams Detail Maker And Fitter Relationship Specialty Start Date End Date Saige De La Cruz MD PCP - General 07/15/07 06/10/14 Ramsey Romero MD PCP - General Family Practice 06/11/14 08/31/16 Arthur Perez MD [address] [place] [address] PCP - General Internal Medicine 09/01/16 09/08/17 Isaias Goodman MD [facility] [address] [address] PCP - General Family Practice 09/09/17 [place] [address] [place] [address] PCP - Assigned PCP 09/05/17 10/15/18 Arthur Perez MD [address] [place] [address] PCP - Assigned PCP 10/16/18 11/29/18 Arthur Perez MD [address] [place] [address] Assigned PCP 10/16/18 09/02/19 documented as of this encounter
--- OUTSIDE RECORDS SUMMARY | 2025-03-28 00:36 | XMS_ITS | Encounter Summary ---
Author Organization [place] Address [address] [facility] [place] [address] Care Team Providers Care Decorator Lighting Fixtures Name Role Phone Saige De La Cruz MD Primary Care Provider Ramsey Romero MD Primary Care Provider Unavailable Arthur Perez MD Primary Care Provider Isaias Goodman MD Primary Care Provider [phone] Nydia Strauss MD Unavailable [phone] Arthur Perez MD Unavailable [phone] Arthur Perez MD Unavailable [phone] Encounter Details Date Type Department Care Team (Late st Contact Info) Description 10/16/2011 MyC Medical Advice [facility] [address] [place] [phone] Saige De La Cruz MD [address] [place] [address] Social History Tobacco Use Types Packs/Day Years Used Date Smoking Tobacco: Never Smokeless Tobacco: Never Alcohol Use Standard Drinks/Week Comments Yes 0 (1 standard drink = 0.6 oz pur e alcohol) upto 4 drinks per week Sex and Gender Information Value Date Recorded Sex Assigned at Male 05/30/2024 11:48 AM CDT 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 Gender Identity Male 05/30/2024 11:48 AM CDT Sexual Orientation Not on file documented as of this encounter Plan of Treatment Not on file documented as of this encounter Visit Diagnoses Not on filedocumented in this encounter Additional Health Concerns Infection Onset Date Last Indicated Resolved Time Rule Out COVID-19 05/29/2024 05/29/2024 05/30/2024 5:46 PM CDT documented as of this encounter Care Teams Decorator Lighting Fixtures Relationship Specialty Start Date End Date Saige De La Cruz MD PCP - General 07/15/07 06/10/14 Ramsey Romero MD PCP - General Family Practice 06/11/14 08/31/16 Arthur Perez MD [address] [place] [address] PCP - General Internal Medicine 09/01/16 09/08/17 Isaias Goodman MD [facility] [address], [place] [address] PCP - General Family Practice 09/09/17 [place] [address] [place] [address] PCP - Assigned PCP 09/05/17 10/15/18 Arthur Perez MD [address] [place] [address] PCP - Assigned PCP 10/16/18 11/29/18 Arthur Perez MD [address] [place] [address] Assigned PCP 10/16/18 09/02/19 documented as of this encounter
--- OUTSIDE RECORDS SUMMARY | 2025-03-28 00:36 | XMS_ITS | Encounter Summary ---
Author Organization [place] Address [address] [facility] [place] [address] Care Team Providers Care Warehouse Director Name Role Phone Arthur Perez MD Primary Care Provider [phone] Isaias Goodman MD Primary Care Provider [phone] Nydia Strauss MD Unavailable [phone] Arthur Perez MD Unavailable [phone] Arthur Perez MD Unavailable [phone] Encounter Details Date Type Department Care Team (Late st Contact Info) Description 09/06/2017 [facility] [place] [facility] Medical Advice [address] [place] [address] Mariel Dailey RN Social History Tobacco Use Types Packs/Day Years Used Date Smoking Tobacco: Never Smokeless Tobacco: Never Alcohol Use Standard Drinks/Week Comments Yes 0 (1 standard drink = 0.6 oz pur e alcohol) upto 4 drinks per week Sex and Gender Information Value Date Recorded Sex Assigned at Male 05/30/2024 11:48 AM CDT 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 Gender Identity Male 05/30/2024 11:48 AM CDT Sexual Orientation Not on file documented as of this encounter Plan of Treatment Not on file documented as of this encounter Visit Diagnoses Not on filedocumented in this encounter Additional Health Concerns Infection Onset Date Last Indicated Resolved Time Rule Out COVID-19 05/29/2024 05/29/2024 05/30/2024 5:46 PM CDT documented as of this encounter Care Teams Warehouse Director Relationship Specialty Start Date End Date Arthur Perez MD [address] [facility] [place] [place] [address] PCP - General Internal Medicine 09/01/16 09/08/17 Isaias Goodman MD [facility] [address] [place] [address] PCP - General Family Practice 09/09/17 [place] [address] [place] [address] PCP - Assigned PCP 09/05/17 10/15/18 Arthur Perez MD [address] [place] [address] PCP - Assigned PCP 10/16/18 11/29/18 Arthur Perez MD [address] [place] [address] Assigned PCP 10/16/18 09/02/19 documented as of this encounter
--- OUTSIDE RECORDS SUMMARY | 2025-03-28 00:36 | XMS_ITS | Clinical Summary ---
Author Organization [place] Address [address] [facility] [place] [address] Care Team Providers Care Manager Etl Name Role Phone Isaias Goodman MD Primary Care Provider [phone] Allergies Active Allergy Reactions Criticality Noted Date [...] Active fluticasone (FLONASE) 50 MCG/ACT sprayIndications:C ough [place] 2 sprays into both nostrils daily 3 [...] migh t be different from the original. 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 N/A: Umbilical [employer]DAVOL 07/27/2015 [id number] / / [id number] Procedures Procedure Name Priority Date/Time Associated Diagnosis [...] - BLOOD ORDERABLES Final Result [facility] [address] [facility], [address] [place] [address] * TSH with free T4 reflex FUTURE 1yr (01/20/2017 9:00 AM CDT) TSH 3.48 0.40 - 4.00 mU/L [facility] Blood specimen (specimen) 01/20/2017 9:00 AM CDT 01/20/2017 9:05 AM CDT us Arthur Perez MD LAB - BLOOD ORDERABLES Deisy l Result Performing Organization Address City/[facility] Co de Phone Number [facility] [address] [place] [phone] * Lipid panel reflex to direct LDL FUTURE 1yr (01/20/2017 9:00 AM CDT) Cholesterol 165 <200 mg/dL [facility] Triglycerides 124 <150 mg/dL [facility] Comment:Fasting specimen HDL Cholesterol 41 >39 mg/dL [facility] LDL Cholesterol Calculated 99 <100 mg/dL [facility] Comment:Desirable: <100 mg/d l Non HDL Cholesterol 124 <130 mg/dL [facility] Blood specimen (specimen) 01/20/2017 9:00 AM CDT 01/20/2017 9:05 AM CDT Arthur Perez MD LAB - BLOOD ORDERABLES Deisy l Result Performing Organization Address [facility] Co de Phone Number [facility] [address] [place] [phone] from Last 3 Months or Most Recently Relevant to Health Maintenance Insurance [employer] COMMERCIAL [facility] COMMERCIAL [facility] Address: [facility] [address] [place] [address] Care Teams Manager Etl Relationship Specialty Start Date End Date Isaias Goodman MD [facility] [address] [place] [address] PCP - General Family Practice 09/09/17
--- OUTSIDE RECORDS SUMMARY | 2025-03-28 00:36 | XMS_ITS | Encounter Summary ---
Author Organization [place] Address [address] [place] [address] Care Team Providers Care Director Translational Name Role Phone Saige De La Cruz MD Primary Care Provider Ramsey Romero MD Primary Care Provider Unavailable Arthur Perez MD Primary Care Provider Isaias Goodman MD Primary Care Provider [phone] Nydia Strauss MD Unavailable [phone] Arthur Perez MD Unavailable [phone] Arthur Perez MD Unavailable [phone] Encounter Details Date Type Department Care Team (Late st Contact Info) Description 10/04/2012 MyC Medical Advice [facility] [address] [place] [phone] Saige De La Cruz MD [address] [place] [address] Social History Tobacco Use Types Packs/Day Years Used Date Smoking Tobacco: Never Smokeless Tobacco: Never Alcohol Use Standard Drinks/Week Comments Yes 0 (1 standard drink = 0.6 oz pur e alcohol) upto 4 drinks per week Sex and Gender Information Value Date Recorded Sex Assigned at Male 05/30/2024 11:48 AM CDT 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 Gender Identity Male 05/30/2024 11:48 AM CDT Sexual Orientation Not on file documented as of this encounter Plan of Treatment Not on file documented as of this encounter Visit Diagnoses Not on filedocumented in this encounter Additional Health Concerns Infection Onset Date Last Indicated Resolved Time Rule Out COVID-19 05/29/2024 05/29/2024 05/30/2024 5:46 PM CDT documented as of this encounter Care Teams Director Translational Relationship Specialty Start Date End Date Saige De La Cruz MD PCP - General 07/15/07 06/10/14 Ramsey Romero MD PCP - General Family Practice 06/11/14 08/31/16 Arthur Perez MD [address] [place] [address] PCP - General Internal Medicine 09/01/16 09/08/17 Isaias Goodman MD [facility] [address] [address] PCP - General Family Practice 09/09/17 [place] [address] [place] [address] PCP - Assigned PCP 09/05/17 10/15/18 Arthur Perez MD [address] [place] [address] PCP - Assigned PCP 10/16/18 11/29/18 Arthur Perez MD [address] [place] [address] Assigned PCP 10/16/18 09/02/19 documented as of this encounter
--- OUTSIDE RECORDS SUMMARY | 2025-03-28 00:36 | XMS_ITS | Encounter Summary ---
Author Organization [place] Address [address] [facility] [place] [address] Care Team Providers Care Pier Worker Name Role Phone Ramsey Romero MD Primary Care Provider Unavailable Arthur Perez MD Primary Care Provider [phone] Isaias Goodman MD Primary Care Provider [phone] Nydia Strauss MD Unavailable [phone] Arthur Perez MD Unavailable [phone] Arthur Perez MD Unavailable [phone] Encounter Details Date Type Department Care Team (Late st Contact Info) Description 07/03/2015 Abstract [facility] [place] [address] [place] [address] [address] [place] [address] Billy Jorge MD [facility] [address] [place] [address] [address] [place] [address] [facility]/ Op Report/ 07/03/15 Social History Tobacco Use Types Packs/Day Years Used Date Smoking Tobacco: Never Smokeless Tobacco: Never Alcohol Use Standard Drinks/Week Comments Yes 0 (1 standard drink = 0.6 oz pur e alcohol) upto 4 drinks per week Sex and Gender Information Value Date Recorded Sex Assigned at Male 05/30/2024 11:48 AM CDT 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 Gender Identity Male 05/30/2024 11:48 AM CDT Sexual Orientation Not on file documented as of this encounter Plan of Treatment Not on file documented as of this encounter Visit Diagnoses Not on filedocumented in this encounter Additional Health Concerns Infection Onset Date Last Indicated Resolved Time Rule Out COVID-19 05/29/2024 05/29/2024 05/30/2024 5:46 PM CDT documented as of this encounter Care Teams Pier Worker Relationship Specialty Start Date End Date Ramsey Romero MD PCP - General Family Practice 06/11/14 08/31/16 Arthur Perez MD [address] [place] [address] PCP - General Internal Medicine 09/01/16 09/08/17 Isaias Goodman MD [facility] [address], [place] [address] PCP - General Family Practice 09/09/17 [place] [address] [place] [address] PCP - Assigned PCP 09/05/17 10/15/18 Arthur Perez MD [address] [place] [address] PCP - Assigned PCP 10/16/18 11/29/18 Arthur Perez MD [address] [place] [address] Assigned PCP 10/16/18 09/02/19 documented as of this encounter
--- OUTSIDE RECORDS SUMMARY | 2025-03-28 00:36 | XMS_ITS | Encounter Summary ---
Author Organization [place] Address [address] [place] [address] Care Team Providers Care Crossbar Frame Wirer Name Role Phone Ramsey Romero MD Primary Care Provider Unavailable Arthur Perez MD Primary Care Provider [phone] Isaias Goodman MD Primary Care Provider [phone] Nydia Strauss MD Unavailable [phone] Arthur Perez MD Unavailable [phone] Arthur Perez MD Unavailable [phone] Encounter Details Date Type Department Care Team (Late st Contact Info) Description 01/14/2016 External Order Results [address] [address] Outside, Provider Social History Tobacco Use Types Packs/Day Years Used Date Smoking Tobacco: Never Smokeless Tobacco: Never Alcohol Use Standard Drinks/Week Comments Yes 0 (1 standard drink = 0.6 oz pur e alcohol) upto 4 drinks per week Sex and Gender Information Value Date Recorded Sex Assigned at Male 05/30/2024 11:48 AM CDT 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 Gender Identity Male 05/30/2024 11:48 AM CDT [...] documented as of this encounter Care Teams Crossbar Frame Wirer Relationship Specialty Start Date End Date Ramsey Romero MD PCP - General Family Practice 06/11/14 08/31/16 Arthur Perez MD [address] [place] [address] PCP - General Internal Medicine 09/01/16 09/08/17 Isaias Goodman MD [facility] [address] [place] [address] PCP - General Family Practice 09/09/17 [place] [address] [place] [address] PCP - Assigned PCP 09/05/17 10/15/18 Arthur Perez MD [address] [place] [address] PCP - Assigned PCP 10/16/18 11/29/18 Arthur Perez MD [address] [place] [address] Assigned PCP 10/16/18 09/02/19 documented as of this encounter
--- OUTSIDE RECORDS SUMMARY | 2025-03-28 00:36 | XMS_ITS | Encounter Summary ---
Author Organization [place] Address [address] [place] [address] Care Team Providers Care Quality Improvement Manager Name Role Phone Saige De La Cruz MD Primary Care Provider [phone] Ramsey Romero MD Primary Care Provider Unavailable Arthur Perez MD Primary Care Provider [phone] Isaias Goodman MD Primary Care Provider [phone] Nydia Strauss MD Unavailable [phone] Arthur Perez MD Unavailable [phone] Arthur Perez MD Unavailable [phone] Encounter Details Date Type Department Care Team (Late st Contact Info) Description 08/04/2010 MyC Medical Advice [facility] [address] [place] [phone] Saige De La Cruz MD [address] [place] [address] Social History Tobacco Use Types Packs/Day Years Used Date Smoking Tobacco: Never Alcohol Use Standard Drinks/Week Comments Yes 0 (1 standard drink = 0.6 oz pur e alcohol) 3 drinks per wk Sex and Gender Information Value Date Recorded Sex Assigned at Male 05/30/2024 11:48 AM CDT 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 Gender Identity Male 05/30/2024 11:48 AM CDT Sexual Orientation Not on file documented as of this encounter Plan of Treatment Not on file documented as of this encounter Visit Diagnoses Not on filedocumented in this encounter Additional Health Concerns Infection Onset Date Last Indicated Resolved Time Rule Out COVID-19 05/29/2024 05/29/2024 05/30/2024 5:46 PM CDT documented as of this encounter Care Teams Quality Improvement Manager Relationship Specialty Start Date End Date Saige De La Cruz MD PCP - General 07/15/07 06/10/14 Ramsey Romero MD PCP - General Family Practice 06/11/14 08/31/16 Arthur Perez MD [address] [place] [address] PCP - General Internal Medicine 09/01/16 09/08/17 Isaias Goodman MD [facility] [address], [place] [address] PCP - General Family Practice 09/09/17 [place] [address] [place] [address] PCP - Assigned PCP 09/05/17 10/15/18 Arthur Perez MD [address] [place] [address] PCP - Assigned PCP 10/16/18 11/29/18 Arthur Perez MD [address] [place] [address] Assigned PCP 10/16/18 09/02/19 documented as of this encounter
--- OUTSIDE RECORDS SUMMARY | 2025-03-28 00:36 | XMS_ITS | Encounter Summary ---
Author Organization [place] Address [address] [facility] [place] [address] Care Team Providers Care Evaluation Engineer Name Role Phone Saige De La Cruz MD Primary Care Provider [phone] Ramsey Romero MD Primary Care Provider Unavailable Arthur Perez MD Primary Care Provider Isaias Goodman MD Primary Care Provider [phone] Nydia Strauss MD Unavailable [phone] Arthur Perez MD Unavailable [phone] Arthur Perez MD Unavailable [phone] Encounter Details Date Type Department Care Team (Late st Contact Info) Description 10/14/2011 MyC Medical Advice [facility] [address] [place] [phone] Saige De La Cruz MD [address] [place] [address] Social History Tobacco Use Types Packs/Day Years Used Date Smoking Tobacco: Never Smokeless Tobacco: Never Alcohol Use Standard Drinks/Week Comments Yes 0 (1 standard drink = 0.6 oz pur e alcohol) upto 4 drinks per week Sex and Gender Information Value Date Recorded Sex Assigned at Male 05/30/2024 11:48 AM CDT 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 Gender Identity Male 05/30/2024 11:48 AM CDT Sexual Orientation Not on file documented as of this encounter Plan of Treatment Not on file documented as of this encounter Visit Diagnoses Not on filedocumented in this encounter Additional Health Concerns Infection Onset Date Last Indicated Resolved Time Rule Out COVID-19 05/29/2024 05/29/2024 05/30/2024 5:46 PM CDT documented as of this encounter Care Teams Evaluation Engineer Relationship Specialty Start Date End Date Saige De La Cruz MD PCP - General 07/15/07 06/10/14 Ramsey Romero MD PCP - General Family Practice 06/11/14 08/31/16 Arthur Perez MD [address] [place] [address] PCP - General Internal Medicine 09/01/16 09/08/17 Isaias Goodman MD [facility] [address], [place] [address] PCP - General Family Practice 09/09/17 [place] [address] [place] [address] PCP - Assigned PCP 09/05/17 10/15/18 Arthur Perez MD [address] [place] [address] PCP - Assigned PCP 10/16/18 11/29/18 Arthur Perez MD [address] [place] [address] Assigned PCP 10/16/18 09/02/19 documented as of this encounter
== END 2025-03-27 07:57 | disposition home or self-care (01) ==
PROVIDERS: PCP Family Medicine; Visit Provider Family Medicine
DX: M54.50 Low back pain, unspecified (principal); M51.26 Other intervertebral disc displacement, lumbar region; M51.27 Other intervertebral disc displacement, lumbosacral region
CPT/HCPCS: 72148

== ENCOUNTER 2025-04-20 09:23 | Outpatient (CLI) | payer BC, SELFPAY | END 2025-04-20 09:24 | disposition home or self-care (01) | PROVIDERS: PCP Family Medicine; Visit Provider Family Medicine | DX: Z00.00 Encounter for general adult medical examination without abnormal findings (principal); E78.5 Hyperlipidemia, unspecified; E03.9 Hypothyroidism, unspecified; I10 Essential (primary) hypertension; Z12.5 Encounter for screening for malignant neoplasm of prostate | CPT/HCPCS: 80048; 80061; 84443; G0103 ==